=== PATIENT | female | born 1970 | race Caucasian/White ===

== ENCOUNTER 2020-04-29 16:12 | Emergency (ER) | payer SELFPAY ==
[2020-04-29] MEDS ORDERED: Sodium Chloride 0.9% 10 ML Syringe FLUSH PRN (16:27)
[2020-04-29] MEDS ORDERED: Ondansetron 4 MG/2 ML SDV IVPUSH ONE (16:27)
[2020-04-29] MEDS ORDERED: LORazepam 2 MG/ML SDV ONE (16:29)
[2020-04-29] MEDS ORDERED: LORazepam 2 MG/ML SDV IVPUSH ONE ×2 (16:29→17:14)
[2020-04-29] MEDS ORDERED: Sodium Chloride 0.9% 1,000 ML IV SCH (16:30)
[2020-04-29] MEDS ORDERED: Sodium Chloride 0.9% 1,000 ML IV ONE (17:30)
--- NOTE | 2020-04-29 17:56 | EDM.PDOC ---
ED HPI GENERAL MEDICAL PROBLEM - General Chief Complaint: General Stated Complaint: MULTIPLE ISSUES Time Seen by Provider: 04/29/20 16:24 Source of Information: Reports: Patient History Limitations: Reports: No Limitations - History of Present Illness INITIAL COMMENTS - FREE TEXT/NARRATIVE: The patient presents with anxiety. She says she is here visiting her sister and has been drinking alcohol daily. She also used meth and cocaine. She is very anxious and breathing fast. Her heart rate is fast and she is cramping in her hands and face. She also has some chest pain and shortness of breath. She says she has been vomiting blood and had blood in her stools. She has no fever, chills, cough, congestion, runny nose, or dysuria. She has a history of hypertension. Onset: Gradual Duration: Hour(s): Location: Reports: Face, Chest, Upper Extremity, Right, Lower Extremity, Left Quality: Reports: Other (cramping) Severity: Moderate Improves with: Reports: None Worsens with: Reports: None Associated Symptoms: Reports: Chest Pain, Shortness of Breath. Denies: Cough, Fever/Chills, Headaches, Nausea/Vomiting Abdomen Pain Score (Numeric/FACES): 8 - Related Data Allergies Allergy/AdvReac Type Severity Reaction Status Date / Time No Known Allergies Allergy Verified 04/29/20 16:30 Home Meds: Home Meds LORazepam [Ativan] 1 mg PO DAILY #18 tablet 04/29/20 [Rx] Omeprazole Magnesium [Prilosec Otc] 20 mg PO DAILY #15 tablet. 04/29/20 [Rx] Ondansetron [Zofran ODT] 4 mg PO Q6H PRN #20 tab.dis 04/29/20 [Rx] lisinopriL [Lisinopril] 20 mg PO DAILY 04/29/20 [History] Past Medical History HEENT History: Reports: Other (See Below) Other HEENT History: botox injecction to foreheaad and cheeks Cardiovascular History: Reports: Hypertension Psychiatric History: Reports: Anxiety, Depression - Infectious Disease History Infectious Disease History: Reports: Influenza - Past Surgical History Female Surgical History: Reports: Section Social & Family History - Tobacco Use Smoking Status *Q: Never Smoker - Caffeine Use Caffeine Use: Reports: None ED ROS GENERAL - Review of Systems Review Of Systems: See Below Constitutional: Reports: No Symptoms HEENT: Reports: Other (facial cramps) Respiratory: Reports: Shortness of Breath Cardiovascular: Reports: Chest Pain Endocrine: Reports: No Symptoms GI/Abdominal: Reports: No Symptoms : Reports: No Symptoms Musculoskeletal: Reports: Muscle Stiffness, Other ED EXAM, GENERAL - Physical Exam Exam: See Below Exam Limited By: No Limitations General Appearance: Alert, Moderate Distress Ears: Normal External Exam Nose: Normal Inspection Head: Atraumatic, Normocephalic Neck: Normal Inspection Respiratory/Chest: No Respiratory Distress, Lungs Clear, Normal Breath Sounds Cardiovascular: No Edema, No Murmur, Tachycardia GI/Abdominal: Soft, Non-Tender, No Organomegaly, No Mass Back Exam: Normal Inspection Extremities: Other (cramping in her hands) Neurological: Alert, CN II-XII Intact EKG INTERPRETATION EKG Date: 04/29/20 Time: 16:58 Rhythm: Other (sinus tachycardia) Rate (Beats/Min): 109 [place]: Normal P-Wave: Present QRS: Normal ST-T: Normal QT: Prolonged Course - Vital Signs Last Recorded V/S: Last Vital Signs Temp 98.0 F 04/29/20 16:23 Pulse 158 H 04/29/20 16:23 Resp 25 H 04/29/20 16:23 BP 134/104 H 04/29/20 16:23 Pulse Ox 100 04/29/20 16:23 - Orders/Labs/Meds Orders: Active Orders 24 hr Category Date Time Status Cardiac Monitoring [RC] . DIRECTED Care 04/29/20 16:27 Active EKG Documentation Completion [RC] STAT Care 04/29/20 16:28 Active Peripheral IV Care [RC] . DIRECTED Care 04/29/20 16:28 Active Sodium Chloride 0.9% [Normal Saline] 1,000 ml Med 04/29/20 16:30 Active IV .BOLUS Sodium Chloride 0.9% [Saline Flush] Med 04/29/20 16:27 Active 10 ml FLUSH ASDIRECTED PRN ED Antiemetic Medication Reflex [OM.PC] Stat Oth 04/29/20 16:28 Ordered Peripheral IV Insertion Adult [OM.PC] Stat Oth 04/29/20 16:27 Ordered Medication Orders Sodium Chloride (Normal Saline) 1,000 mls @ 1,000 mls/hr IV .BOLUS GARRETT Last Admin: 04/29/20 16:40 Dose: 1,000 mls/hr Documented by: MCKENZIE Sodium Chloride (Saline Flush) 10 ml FLUSH ASDIRECTED PRN PRN Reason: Keep Vein Open Last Admin: 04/29/20 16:20 Dose: 10 ml Documented by: MCKENZIE Labs: Laboratory Tests 04/29/20 04/29/20 04/29/20 Range/Units 16:20 16:20 18:17 WBC 15.13 H (3.98-10.04) K/mm3 RBC 4.30 (3.98-5.22) M/mm3 Hgb 14.6 (11.2-15.7) gm/dl Hct 43.3 (34.1-44.9) % MCV 100.7 H (79.4-94.8) fl MCH 34.0 H (25.6-32.2) pg MCHC 33.7 (32.2-35.5) g/dl RDW Std Deviation 41.9 (36.4-46.3) fL Plt Count 220 (182-369) K/mm3 MPV 9.5 (9.4-12.3) fl Neut % (Auto) 67.1 (34.0-71.1) % Lymph % (Auto) 20.8 (19.3-51.7) % [place] % (Auto) 8.9 (4.7-12.5) % Eos % (Auto) 2.7 (0.7-5.8) Baso % (Auto) 0.3 (0.1-1.2) % Neut # (Auto) 10.15 H (1.56-6.13) K/mm3 Lymph # (Auto) 3.15 (1.18-3.74) K/mm3 [place] # (Auto) 1.35 H (0.24-0.36) K/mm3 Eos # (Auto) 0.41 H (0.04-0.36) K/mm3 Baso # (Auto) 0.04 (0.01-0.08) K/mm3 Manual Slide Review Abnormal smear Sodium 133 L (136-145) mEq/L Potassium 3.9 (3.5-5.1) mEq/L Chloride 91 L (98-107) mEq/L Carbon Dioxide 26 (21-32) mEq/L Anion Gap 19.9 H (5-15) BUN 13 (7-18) mg/dL Creatinine 1.5 H (0.55-1.02) mg/dL Est Cr Clr Drug Dosing 35.34 mL/min Estimated GFR (MDRD) 37 (>60) mL/min BUN/Creatinine Ratio 8.7 L (14-18) Glucose 126 H (74-106) mg/dL Calcium 11.4 H (8.5-10.1) mg/dL Total Bilirubin 1.9 H (0.2-1.0) mg/dL AST 80 H (15-37) U/L ALT 49 (14-59) U/L Alkaline Phosphatase 110 (46-116) U/L Troponin I < 0.017 (0.00-0.056) ng/mL Total Protein 8.7 H (6.4-8.2) g/dl Albumin 4.5 (3.4-5.0) g/dl Globulin 4.2 gm/dL Albumin/Globulin Ratio 1.1 (1-2) Urine Opiates Screen Negative (NSUBJY=880) Ur Buprenorphine Scrn Negative (CUTOFF=10) Ur Oxycodone Screen Negative (REX4JE=768) Urine Methadone Screen Negative (RTSBEO=383) Ur Propoxyphene Screen Negative (AURRHP=438) Ur Barbiturates Screen Negative (YIKJQK=399) Ur Tricyclics Screen Negative (NGJICG=229) Ur Phencyclidine Scrn Negative (CUTOFF=25) Ur Amphetamine Screen Negative (QVOHXI=936) U Methamphetamines Scrn Presumptive positive H (IFQFML=476) U Benzodiazepines Scrn Negative (YQXKAE=966) U Cocaine Metab Screen Presumptive positive H (BKDNJG=338) U Marijuana (THC) Screen Presumptive positive H (CUTOFF=50) Ethyl Alcohol 0.01 (0.00) gm% Meds: Medications Generic Name Dose Route Start Last Admin Trade Name Freq PRN Reason Stop Dose Admin Sodium Chloride 1,000 mls @ 1,000 mls/hr 04/29/20 16:30 04/29/20 16:40 Normal Saline IV 1,000 mls/hr .BOLUS GARRETT Administration Sodium Chloride 10 ml 04/29/20 16:27 04/29/20 16:20 Saline Flush FLUSH 10 ml ASDIRECTED PRN Administration Keep Vein Open Discontinued Medications Generic Name Dose Route Start Last Admin Trade Name Freq PRN Reason Stop Dose Admin Famotidine 20 mg 04/29/20 17:58 04/29/20 18:27 Pepcid IVPUSH 04/29/20 17:59 20 mg ONETIME ONE Administration Sodium Chloride 1,000 mls @ 1,000 mls/hr 04/29/20 17:30 04/29/20 17:32 Normal Saline IV 04/29/20 18:29 1,000 mls/hr ONETIME ONE Administration Lorazepam 1 mg 04/29/20 16:29 04/29/20 16:35 Ativan IVPUSH 04/29/20 16:30 1 mg ONETIME ONE Administration Lorazepam Confirm 04/29/20 16:29 04/29/20 16:35 Ativan Administered 04/29/20 16:30 Not Given Dose 2 mg .ROUTE .STK-MED ONE Lorazepam 1 mg 04/29/20 17:14 04/29/20 17:23 Ativan IVPUSH 04/29/20 17:15 1 mg ONETIME ONE Administration Ondansetron HCl 4 mg 04/29/20 16:27 04/29/20 16:44 Zofran IVPUSH 04/29/20 16:28 4 mg ONETIME ONE Administration - Re-Assessments/Exams Free Text/Narrative Re-Assessment/Exam: 04/29/20 17:57 I ordered an IV NS 1L bolus, zofran 4mg IV, ativan 1mg IV, labs, and EKG. Her EKG shows a sinus tachycardia with no acute changes. She does have a prolonged QT interval. Her WBC was elevated at 15.13. Her Na is 133. Her anion gap is elevated at 19.9. Her creatinine is elevated at 1.5. Her glucose is 126. Her total bili is elevated at 1.4. Her troponin is negative. Her ETOH is 0.01. I ordered another dose of ativan and NS 1L bolus. 04/29/20 18:47 Her UDS is presumptive positive for marijuana, meth and cocaine. She admits to using all three. She feels much better. Her Hgb is normal. I do not think she needs to be admitted for the gastritis. I will get her on prilosec and pepcid. I will have her take some ativan to come off the alcohol. Departure - Departure Time of Disposition: 18:50 Disposition: Home, Self-Care 01 Condition: Good Clinical Impression: Anxiety, Drug abuse, Alcohol abuse, Dehydration Gastritis Qualifiers: Gastritis type: alcoholic Chronicity: acute Gastritis bleeding: with bleeding Qualified Code(s): K29.21 - Alcoholic gastritis with bleeding - Discharge Information *PRESCRIPTION DRUG MONITORING PROGRAM REVIEWED*: No *COPY OF PRESCRIPTION DRUG MONITORING REPORT IN PATIENT ASHLEY: No Prescriptions: LORazepam [Ativan] 1 mg PO DAILY #18 tablet Omeprazole Magnesium [Prilosec Otc] 20 mg PO DAILY #15 tablet. Ondansetron [Zofran ODT] 4 mg PO Q6H PRN #20 tab.dis PRN Reason: Nausea\vomiting Referrals: PCP,Not In Area [Primary Care Provider] - Rebekah Hernandez, TRANSF[employer] AND [employer]PERATOR [Nurse Practitioner] - 1 Week Forms: ED Department Discharge Additional Instructions: Stop drinking alcohol. Take ativan as prescribed. Take the zofran as needed for nausea and vomiting. Take the prilosec daily. You can also take pepcid daily and tums as needed. Try to stop using the other drugs. Start taking clear liquids and advance your diet as tolerated. Please return if you are worse. If you stay in town longer you can call [facility] at for help. Sepsis Event Note (ED) - Evaluation Sepsis Screening Result: Sepsis Risk - Focused Exam Vital Signs: Vital Signs Temp Pulse Resp BP Pulse Ox 04/29/20 16:23 98.0 F 158 H 25 H 134/104 H 100 - My Orders Last 24 Hours: My Active Orders 04/29/20 16:27 Cardiac Monitoring [RC] . DIRECTED Sodium Chloride 0.9% [Saline Flush] 10 ml FLUSH ASDIRECTED PRN Peripheral IV Insertion Adult [OM.PC] Stat 04/29/20 16:28 EKG Documentation Completion [RC] STAT Peripheral IV Care [RC] . DIRECTED ED Antiemetic Medication Reflex [OM.PC] Stat 04/29/20 16:30 Sodium Chloride 0.9% [Normal Saline] 1,000 ml IV .BOLUS - Assessment/Plan Last 24 Hours: My Active Orders 04/29/20 16:27 Cardiac Monitoring [RC] . DIRECTED Sodium Chloride 0.9% [Saline Flush] 10 ml FLUSH ASDIRECTED PRN Peripheral IV Insertion Adult [OM.PC] Stat 04/29/20 16:28 EKG Documentation Completion [RC] STAT Peripheral IV Care [RC] . DIRECTED ED Antiemetic Medication Reflex [OM.PC] Stat 04/29/20 16:30 Sodium Chloride 0.9% [Normal Saline] 1,000 ml IV .BOLUS
[2020-04-29] MEDS ORDERED: Famotidine 20 MG/2 ML SDV IVPUSH ONE (17:58)
== END 2020-04-29 19:28 | disposition home or self-care (01) ==
LOC: JD.ED 16:12
DX: K29.21 Alcoholic gastritis with bleeding (principal); F41.9 Anxiety disorder, unspecified; F19.10 Other psychoactive substance abuse, uncomplicated; F10.10 Alcohol abuse, uncomplicated; E86.0 Dehydration; F15.10 Other stimulant abuse, uncomplicated; F14.10 Cocaine abuse, uncomplicated; I10 Essential (primary) hypertension; Z79.899 Other long term (current) drug therapy
CPT/HCPCS: 36415; 80053; 80306; 80307; 84484; 85025; 93005; 96361; 96374; 96375; 96376; 99285; J2060; J2405; J3490; J7030; 93010; 99284